=== PATIENT | male | born 1995 | race Two or more races ===

== ENCOUNTER 2025-02-03 23:56 | Emergency (ER) | payer OTHER ==
[~2025-02-03] VITALS: Ht 165.1 cm; Wt 90.7 kg
[2025-02-04] MEDS ORDERED: DICY10CA37 PO (00:33)
[2025-02-04] MEDS ORDERED: ONDA4TAB5 PO (00:33)
[2025-02-04] MEDS ORDERED: PANT40TA2 PO (00:33)
[2025-02-04] MEDS ORDERED: DICYCLOMINE HCL 10 MG CAPSULE PO ONE (00:34)
[2025-02-04] MEDS ORDERED: PANTOPRAZOLE 40 MG TABLET.DR PO ONE (00:35)
[2025-02-04] MEDS ORDERED: ONDANSETRON 4 MG TAB.RAPDIS ONE (00:35)
[2025-02-04] MEDS: DICYCLOMINE HCL 10 MG CAPSULE PO ONE (00:37)
[2025-02-04 00:38] LABS: PLATELET COUNT (AUTO) 294 K/uL (150-450); RED BLOOD CELL COUNT(AUTO) 5.07 MIL/uL (4.5-6.0); RED CELL DISTRIBUTION WIDTH 13.5 % (11.5-15.0); WHITE BLOOD COUNT (AUTO) 11.6 K/uL (4.3-11.0)
[2025-02-04] MEDS: PANTOPRAZOLE 40 MG TABLET.DR PO ONE (00:38)
[2025-02-04] MEDS: ONDANSETRON 4 MG TAB.RAPDIS PO ONE (00:38)
[2025-02-04 00:46] LABS: CREATININE 0.7 mg/dL (0.6-1.3); SODIUM SERUM 141 mmol/L (136-145); UREA NITROGEN, BLOOD 18 mg/dL (7-18)
[2025-02-04 00:51] LABS: ALCOHOL, BLOOD < 3 mg/dL (0-10); ASPARTATE AMINOTRANSFERASE 45 U/L (15-37); CALCIUM, SERUM 8.9 mg/dL (8.5-10.1); TOTAL PROTEIN, SERUM 8.0 g/dL (6.4-8.2)
[2025-02-04 01:51] VITALS: BP 131/70; TEMP 98.6; O2SAT 96
== END 2025-02-04 01:51 | disposition home or self-care (01) ==
LOC: ER 02-04 00:03
DX: R10.9 Unspecified abdominal pain (principal); R11.2 Nausea with vomiting, unspecified; R74.8 Abnormal levels of other serum enzymes; Z79.899 Other long term (current) drug therapy; Z60.2 Problems related to living alone
CPT/HCPCS: 99284; 85025; 83690; 83735; 36415; 80053; 86140; 80320; Q0162; G0480